=== PATIENT | female | born 1970 | race Native Hawaiian/Other Pacific Islander ===

== ENCOUNTER 2020-08-19 12:21 | Outpatient (CLI) | payer OTHER ==
[2020-08-19 12:35] LABS: PLATELET COUNT 363 K/uL (152-353)
== END 2020-08-19 19:23 | disposition home or self-care (01) ==
LOC: LAB 12:21
PROVIDERS: ATTEND Nurse Practitioner Family
DX: R53.83 Other fatigue (principal); E78.2 Mixed hyperlipidemia; N95.9 Unspecified menopausal and perimenopausal disorder; E55.9 Vitamin D deficiency, unspecified
CPT/HCPCS: 36415; 80053; 80061; 82306; 82607; 82670; 83001; 83519; 84144; 84402; 84403; 84436; 84443; 84481; 85027; 86376

== ENCOUNTER 2020-11-23 19:21 | Emergency (ER) | payer OTHER ==
[~2020-11-23] VITALS: Ht 152.4 cm; Wt 56.2 kg
[2020-11-23 20:13] LABS: PLATELET COUNT 418 K/uL (152-353)
[2020-11-23 20:29] LABS: POTASSIUM 3.2 mmol/L (3.6-5.2); SODIUM 142 mmol/L (136-145)
[2020-11-23 20:47] LABS: PARTIAL THROMBOPLASTIN TIME 25.6 SECONDS (24.5-33.6)
[2020-11-23 23:20] VITALS: BP 122/86; TEMP 98.2
== END 2020-11-23 23:20 | disposition home or self-care (01) ==
LOC: ED 19:21
PROVIDERS: Family Medicine
DX: R00.2 Palpitations (principal); E87.6 Hypokalemia
CPT/HCPCS: 36415; 80053; 80307; 81000; 82550; 84439; 84443; 84484; 85027; 85379; 85610; 85730; 93005; 99284